=== PATIENT | female | born 1960 | race Two or more races ===

== ENCOUNTER → 2020-03-17 | Outpatient (CLI) | payer OTHER ==
--- NOTE | 2020-03-17 11:07 | RAD ---
EXAM: AP and lateral views of the lumbar spine DATE: 03/17/2020 10:35 AM INDICATION: Reason: LUMBAR BACK PAIN. / Spl. Instructions: / History: COMPARISON: No Prior FINDINGS: Transitional lumbosacral anatomy with partial sacralization of L5. Vertebral body heights are preserved. Disc heights are preserved. Moderate facet degenerative changes L3-4, L4-5 and L5-S1. No spondylolisthesis. Cholecystectomy clips are seen in the right upper quadrant. Moderate colonic stool content particularly in the right colon and rectum. IMPRESSION: 1. Multilevel spondylosis as above 2. Negative acute fracture or subluxation. Electronically signed by: Franklyn Camargo MD (03/17/2020 11:04 AM) [id number]
== END ==
LOC: RAD 10:11
PROVIDERS: ATTEND Family Medicine
DX: M47.817 Spondylosis without myelopathy or radiculopathy, lumbosacral region (principal)
CPT/HCPCS: 72100